=== PATIENT | male | born 1975 | race Caucasian/White ===

== ENCOUNTER 2018-03-25 12:42 | Emergency (ER) | payer OTHER ==
[~2018-03-25] VITALS: Ht 180.3 cm; Wt 106.6 kg
[2018-03-25 12:45] VITALS: BP 151/95
--- NOTE | 2018-03-25 12:52 | NUR ---
AMBULATES TO BED 6 WITH STEADY GAIT
--- NOTE | 2018-03-25 12:53 | NUR ---
43/M BIB DAUGHTER C/O SOB X 3 DAYS. DESCRIBED HEAVINESS WHEN TRYING TO TAKE DEEP BREATHS. O2 SATS 100% ON RA. DENIES CP, N/V/DIZZINESS. PT ALSO REPORTS STEPPING ON A NAIL AT A [employer] X 2 WKS AGO WITH RT FOOT. +PUNCUTRE WOUND TO RT INFERIOR FOOT. HX: ASTHMA . SKIN IS PINK/WARM/DRY; AAOX4 WITH EVEN AND STEADY GAIT; LUNGS CLEAR BL. PT DENIES ANY FEVER, CP, SOB, OR COUGH AT THIS TIME; PATIENT STATES PAIN OF 2/10 R FOOT AT THIS TIME. PATIENT POSITIONED FOR COMFORT; HOB ELEVATED; BEDRAILS UP X2; BED DOWN. ER MADE AWARE OF PT STATUS. Addendum: 03/25/18 at 1306 by [facility]T PT REPORTED : DOES NOT HAVE T DAP VACCINE D/R 5 YEARS.
--- NOTE | 2018-03-25 13:12 | NUR ---
Patient being evaluated by DR BALTAZAR at bedside.
[2018-03-25 14:02] VITALS: BP 131/80
--- NOTE | 2018-03-25 14:02 | NUR ---
Patient discharged with v/s stable. Written and verbal after care instructions given and explained. Patient alert, oriented and verbalized understanding of instructions. Ambulatory with steady gait. All questions addressed prior to discharge. ID band removed. Patient advised to follow up with PMD. Rx of CIPRO & ALBUTEROL given. Patient educated on indication of medication including possible reaction and side effects. Opportunity to ask questions provided and answered.
== END 2018-03-25 14:02 | disposition home or self-care (01) ==
LOC: MED 12:42
DX: S91.331A Puncture wound without foreign body, right foot, initial encounter (principal); R06.02 Shortness of breath; W45.0XXA Nail entering through skin, initial encounter; Y93.89 Activity, other specified; Y99.8 Other external cause status; Y92.89 Other specified places as the place of occurrence of the external cause
CPT/HCPCS: 71045; 90471; 90715; 99283; Q0092